=== PATIENT | female | born 1945 | race Caucasian/White ===

== ENCOUNTER → 2023-09-12 | Outpatient (REF) | payer MEDICARE ==
[~2023-09-12] MED LIST: LIDOCAINE HCL 1% LOCAL INJ 20 ML VIAL ONE
== END ==
LOC: US 10:03
PROVIDERS: ATTEND Family Medicine
DX: N63.20 Unspecified lump in the left breast, unspecified quadrant (principal); N63.10 Unspecified lump in the right breast, unspecified quadrant
CPT/HCPCS: 19083 ×2; 38505; 76942; 77066; 88305; 88342; J2001; A4648

== ENCOUNTER 2025-06-15 13:37 | Outpatient (RCR) | payer MEDICARE ==
[~2025-06-15 13:37] MED LIST changes: +COLLAGENASE OINTMENT 30 GM TUBE ONE; -LIDOCAINE HCL 1% LOCAL INJ 20 ML VIAL ONE
== END 2025-06-24 ==
LOC: WCC 13:37
PROVIDERS: ATTEND Nurse Practitioner Family
DX: S21.002A Unspecified open wound of left breast, initial encounter (principal)

== ENCOUNTER 2025-07-15 10:30 | Outpatient (RCR) | payer MEDICARE | END 2025-07-25 | LOC: WCC 10:30 | PROVIDERS: ATTEND Nurse Practitioner Family | DX: S21.002A Unspecified open wound of left breast, initial encounter (principal) ==